=== PATIENT | male | born 1995 | race African-American/Black ===

== ENCOUNTER 2017-12-09 11:15 | Day surgery (SDC) | payer OTHER ==
[2017-12-09] MEDS ORDERED: LIDOCAINE 2% (SDV) 5 ML INJ (12:31)
[2017-12-09] MEDS ORDERED: PROPOFOL 40 ML (12:31)
== END 2017-12-09 15:07 | disposition home or self-care (01) ==
LOC: GIL 11:15
DX: K29.50 Unspecified chronic gastritis without bleeding (principal)
CPT/HCPCS: 43239; 88305; 88312